=== PATIENT | female | born 1980 | race Caucasian/White ===

== ENCOUNTER 2021-02-03 13:34 | Emergency (ER) | payer SELFPAY ==
[~2021-02-03] VITALS: Ht 154.9 cm; Wt 61.2 kg
[2021-02-03 13:56] VITALS: BP 125/76
--- NOTE | 2021-02-03 14:39 | NUR ---
Patient ambulated to bed 6. RN evaluating the patient at bedside.
--- NOTE | 2021-02-03 15:06 | NUR ---
Dr. Romero is evaluating the patient at bedside.
[2021-02-03] MEDS ORDERED: PRED20TA5 PO (15:13)
--- NOTE | 2021-02-03 15:18 | NUR ---
40/F presents to ED with c/o throat discomfort. Patient states around 1230 after eating she felt her throat "getting tight." States she did not have difficulty swallowing, speaking or breathing. Reports taking Benadryl and states provided some relief. Patient denies chest pain or shortness of breath at this time, denies fevers, chills, nausea or vomiting.
[2021-02-03 15:26] VITALS: BP 125/76
--- NOTE | 2021-02-03 15:26 | NUR ---
Patient discharged with v/s stable. Written and verbal after care instructions given ANAPHYLAXIS REAXTION AND THROAT SWELLING and explained. Patient alert, oriented and verbalized understanding of instructions. Ambulatory with steady gait. All questions addressed prior to discharge. ID band removed. Patient advised to follow up with PMD. Rx of PREDNISONE 60MG PO DAILY FOR 5 DAYS given. Patient educated on indication of medication including possible reaction and side effects. Opportunity to ask questions provided and answered.
== END 2021-02-03 15:26 | disposition home or self-care (01) ==
LOC: MED 13:34
DX: T78.40XA Allergy, unspecified, initial encounter (principal)
CPT/HCPCS: 99283